=== PATIENT | female | born 1935 | race Caucasian/White ===

== ENCOUNTER → 2018-06-06 | Outpatient (REF) | payer MEDICARE ==
[~2018-06-06] MED LIST: AMIODARONE200 MG PO; EC ASPIRIN325 MG PO; HYDROCHLOROT25 MG PO; LISINOPRIL5 MG PO; MULTIVITAMI1 PO; REMERON15 MG PO; SYNTHROID112 MCG PO; TENORMIN25 MG PO; ZOCOR20 M1 PO
[2018-06-06 10:22] LABS: HEMATOCRIT 36.4 % (37.0-47.0); HEMOGLOBIN 11.2 g/dl (12.0-16.0); MEAN CORPUSCULAR HGB 29.6 pG CALC (26.0-32.0); MEAN CORPUSCULAR HGB CONC 30.8 g/L CALC (32.0-36.0); RED BLOOD COUNT 3.79 mill/uL (4.20-5.60)
[2018-06-06 12:07] LABS: ALBUMIN 4.1 g/dL (3.2-5.0); ALKALINE PHOSPHATASE 84 u/l (38-126); ANION GAP 16 (6-22 (CALC)); BILIRUBIN, TOTAL 0.5 mg/dL (0.0-1.4); BUN 23 mg/dL (8-23); BUN/CREATININE RATIO 28 (12-20 (CALC)); CARBON DIOXIDE 31 mmol/l (22-30); CHLORIDE 98 mmol/l (95-108); CREATININE 0.8 mg/dL (0.5-1.0); GFR > 60 ML/MIN (>=60 (CALC)); GFR FOR AFR.AMER. > 60 ML/MIN (>=60 (CALC)); SGOT/AST 22 u/l (9-36); SODIUM 140 mmol/l (137-146); TOTAL PROTEIN 7.5 g/dL (6.3-8.2)
[2018-06-06 12:27] LABS: TSH, 3RD GENERATION 2.05 uIU/mL (0.47 - 4.68)
== END | disposition home or self-care (01) ==
LOC: LAB 09:29
PROVIDERS: ATTEND Nurse Practitioner Adult Health
DX: E03.9 Hypothyroidism, unspecified (principal); E78.49 Other hyperlipidemia; I10 Essential (primary) hypertension

== ENCOUNTER 2021-05-28 08:04 | Observation (INO) | payer MEDICARE ==
[2021-05-28] VITALS (10 sets, daily range): BP systolic 97–168; BP diastolic 51–107
[~2021-05-28] VITALS: Ht 160 cm; Wt 125.8 kg
[2021-05-28 08:39] LABS: HEMATOCRIT 45.5 % (37.0-47.0); HEMOGLOBIN 13.5 g/dl (12.0-16.0); IMMATURE GRANULOCYTES 0.1 % (0.0-5.0); MEAN CELL VOLUME 106.1 fL CALC (80.0-100.0); MEAN CORPUSCULAR HGB 31.5 pG CALC (26.0-32.0); MEAN CORPUSCULAR HGB CONC 29.7 g/dL CAL (32.0-36.0); NEUT# 4.37 thou/uL (2.00-7.15); RED BLOOD COUNT 4.29 mill/uL (4.20-5.60); RED CELL DISTRI WIDTH 14.5 % (11.5-15.5)
[2021-05-28 08:54] LABS: INTERNATIONAL NORMALIZED RATIO 1.1 RATIO (0.7-1.3); PROTHROMBIN TIME 11.1 SECONDS (9.0-12.5)
[2021-05-28 08:56] LABS: ALBUMIN 4.1 g/dL (3.2-5.0); ALKALINE PHOSPHATASE 82 u/l (38-126); ANION GAP 10 (6-22 (CALC)); BILIRUBIN, TOTAL 0.6 mg/dL (0.0-1.4); BUN 21 mg/dL (8-23); BUN/CREATININE RATIO 28 (12-20 (CALC)); CARBON DIOXIDE 37 mmol/l (22-30); CHLORIDE 97 mmol/l (95-108); CREATININE 0.7 mg/dL (0.5-1.0); GFR > 60 ML/MIN (>=60 (CALC)); GFR FOR AFR.AMER. > 60 ML/MIN (>=60 (CALC)); POTASSIUM 4.6 mmol/l (3.5-5.1); SGOT/AST 23 u/l (9-36); SODIUM 140 mmol/l (137-146); TOTAL PROTEIN 8.2 g/dL (6.3-8.2)
[2021-05-29] VITALS (7 sets, daily range): BP systolic 85–118; BP diastolic 36–49
[2021-05-29 05:28] LABS: BUN 18 mg/dL (8-23); BUN/CREATININE RATIO 22 (12-20 (CALC)); CHLORIDE 93 mmol/l (95-108); CREATININE 0.8 mg/dL (0.5-1.0); GFR > 60 ML/MIN (>=60 (CALC)); GFR FOR AFR.AMER. > 60 ML/MIN (>=60 (CALC)); MAGNESIUM 1.7 mg/dL (1.6-2.3); SODIUM 140 mmol/l (137-146)
[2021-05-29 05:34] LABS: HEMATOCRIT 42.6 % (37.0-47.0); HEMOGLOBIN 12.4 g/dl (12.0-16.0); MEAN CELL VOLUME 108.1 fL CALC (80.0-100.0); MEAN CORPUSCULAR HGB 31.5 pG CALC (26.0-32.0); MEAN CORPUSCULAR HGB CONC 29.1 g/dL CAL (32.0-36.0); RED BLOOD COUNT 3.94 mill/uL (4.20-5.60); RED CELL DISTRI WIDTH 14.3 % (11.5-15.5)
[2021-05-29 06:36] LABS: POTASSIUM 4.5 mmol/l (3.5-5.1)
[2021-05-29 06:42] LABS: ANION GAP 12 (6-22 (CALC)); CARBON DIOXIDE 40 mmol/l (22-30)
[2021-05-30 00:10] VITALS: BP 105/40
[2021-05-30 04:07] VITALS: BP 101/35
[2021-05-30 05:16] LABS: HEMATOCRIT 41.3 % (37.0-47.0); HEMOGLOBIN 12.1 g/dl (12.0-16.0); MEAN CELL VOLUME 109.8 fL CALC (80.0-100.0); MEAN CORPUSCULAR HGB 32.2 pG CALC (26.0-32.0); MEAN CORPUSCULAR HGB CONC 29.3 g/dL CAL (32.0-36.0); RED BLOOD COUNT 3.76 mill/uL (4.20-5.60); RED CELL DISTRI WIDTH 13.8 % (11.5-15.5)
[2021-05-30 05:36] LABS: BUN 27 mg/dL (8-23); CHLORIDE 92 mmol/l (95-108); MAGNESIUM 1.8 mg/dL (1.6-2.3); POTASSIUM 4.8 mmol/l (3.5-5.1); SODIUM 139 mmol/l (137-146)
[2021-05-30 05:43] LABS: ANION GAP 11 (6-22 (CALC)); BUN/CREATININE RATIO 34 (12-20 (CALC)); CREATININE 0.8 mg/dL (0.5-1.0); GFR > 60 ML/MIN (>=60 (CALC)); GFR FOR AFR.AMER. > 60 ML/MIN (>=60 (CALC))
[2021-05-30 05:56] LABS: CARBON DIOXIDE 41 mmol/l (22-30)
[2021-05-30 08:04] VITALS: BP 105/43
[2021-05-30 10:10] VITALS: BP 111/50
[2021-05-30 14:12] VITALS: BP 93/45
[2021-05-30 21:06] VITALS: BP 117/57
[2021-05-31 00:35] VITALS: BP 121/46
[2021-05-31 04:29] VITALS: BP 142/73
[2021-05-31 05:29] LABS: HEMATOCRIT 41.8 % (37.0-47.0); HEMOGLOBIN 12.2 g/dl (12.0-16.0); MEAN CORPUSCULAR HGB 31.5 pG CALC (26.0-32.0); MEAN CORPUSCULAR HGB CONC 29.2 g/dL CAL (32.0-36.0); RED BLOOD COUNT 3.87 mill/uL (4.20-5.60); RED CELL DISTRI WIDTH 13.9 % (11.5-15.5)
[2021-05-31 05:58] LABS: BUN 33 mg/dL (8-23); BUN/CREATININE RATIO 41 (12-20 (CALC)); CHLORIDE 93 mmol/l (95-108); CREATININE 0.8 mg/dL (0.5-1.0); GFR > 60 ML/MIN (>=60 (CALC)); GFR FOR AFR.AMER. > 60 ML/MIN (>=60 (CALC)); MAGNESIUM 1.8 mg/dL (1.6-2.3); POTASSIUM 4.9 mmol/l (3.5-5.1); SODIUM 138 mmol/l (137-146)
[2021-05-31 06:05] LABS: ANION GAP 9 (6-22 (CALC))
[2021-05-31 06:10] LABS: CARBON DIOXIDE 41 mmol/l (22-30)
[2021-05-31 08:46] VITALS: BP 129/60
[2021-05-31 10:44] VITALS: BP 153/71
[2021-05-31 15:57] VITALS: BP 120/46
[2021-05-31 19:00] VITALS: BP 95/42
[2021-06-01] VITALS: BP 115/46
[2021-06-01 04:00] VITALS: BP 120/50
[2021-06-01 06:56] LABS: HEMATOCRIT 44.8 % (37.0-47.0); HEMOGLOBIN 13.3 g/dl (12.0-16.0); MEAN CELL VOLUME 106.9 fL CALC (80.0-100.0); MEAN CORPUSCULAR HGB 31.7 pG CALC (26.0-32.0); MEAN CORPUSCULAR HGB CONC 29.7 g/dL CAL (32.0-36.0); RED BLOOD COUNT 4.19 mill/uL (4.20-5.60); RED CELL DISTRI WIDTH 13.8 % (11.5-15.5)
[2021-06-01 07:11] LABS: BUN 24 mg/dL (8-23); BUN/CREATININE RATIO 26 (12-20 (CALC)); CHLORIDE 95 mmol/l (95-108); CREATININE 0.9 mg/dL (0.5-1.0); GFR 59 ML/MIN (>=60 (CALC)); GFR FOR AFR.AMER. > 60 ML/MIN (>=60 (CALC)); MAGNESIUM 1.9 mg/dL (1.6-2.3); POTASSIUM 4.5 mmol/l (3.5-5.1); SODIUM 138 mmol/l (137-146)
[2021-06-01 07:17] LABS: ANION GAP 11 (6-22 (CALC)); CARBON DIOXIDE 37 mmol/l (22-30)
[2021-06-01 07:30] VITALS: BP 130/57
[2021-06-01 10:22] VITALS: BP 142/70
[2021-06-01 14:53] VITALS: BP 119/71
[2021-06-01 19:00] VITALS: BP 116/40
[2021-06-02] VITALS: BP 132/63
[2021-06-02 04:00] VITALS: BP 110/63
[2021-06-02 06:20] LABS: HEMATOCRIT 42.4 % (37.0-47.0); HEMOGLOBIN 12.6 g/dl (12.0-16.0); MEAN CELL VOLUME 107.6 fL CALC (80.0-100.0); MEAN CORPUSCULAR HGB CONC 29.7 g/dL CAL (32.0-36.0); RED BLOOD COUNT 3.94 mill/uL (4.20-5.60)
[2021-06-02 06:41] LABS: CREATININE 1.1 mg/dL (0.5-1.0); POTASSIUM 4.7 mmol/l (3.5-5.1)
[2021-06-02 07:40] VITALS: BP 121/57
[2021-06-02 11:14] VITALS: BP 107/51
== END 2021-06-02 12:40 ==
LOC: ED 08:04 → ED-I 09:00 → ED 10:05 → MS2 10:06
PROVIDERS: Family Medicine; Nurse Practitioner; ADMIT Hospitalist; ATTEND Hospitalist
DX: J96.01 Acute respiratory failure with hypoxia (principal); J96.02 Acute respiratory failure with hypercapnia; I11.0 Hypertensive heart disease with heart failure; I50.33 Acute on chronic diastolic (congestive) heart failure; E66.2 Morbid (severe) obesity with alveolar hypoventilation; E87.6 Hypokalemia; E03.9 Hypothyroidism, unspecified; Z68.42 Body mass index [BMI] 45.0-49.9, adult; Z95.2 Presence of prosthetic heart valve; Z20.822 Contact with and (suspected) exposure to COVID-19
CPT/HCPCS: G0378; J1650; Q9967

== ENCOUNTER 2021-07-02 11:05 | Observation (INO) | payer MEDICARE ==
[2021-07-02] VITALS (33 sets, daily range): BP systolic 74–157; BP diastolic 31–102
[~2021-07-02] VITALS: Ht 160 cm; Wt 120.0 kg
[~2021-07-02 11:05] MED LIST changes: +LEVOTHYROXIN100 MCG PO; -SYNTHROID112 MCG PO
[2021-07-02 12:22] LABS: HEMATOCRIT 41.3 % (37.0-47.0); IMMATURE GRANULOCYTES 0.8 % (0.0-5.0); MEAN CORPUSCULAR HGB 31.1 pG CALC (26.0-32.0); MEAN CORPUSCULAR HGB CONC 29.1 g/dL CAL (32.0-36.0); NEUT# 10.1 thou/uL (2.00-7.15); RED BLOOD COUNT 3.86 mill/uL (4.20-5.60); RED CELL DISTRI WIDTH 13.4 % (11.5-15.5)
[2021-07-02 12:32] LABS: ALBUMIN 3.6 g/dL (3.2-5.0); ALKALINE PHOSPHATASE 75 u/l (38-126); BILIRUBIN, TOTAL 0.5 mg/dL (0.0-1.4); BUN 20 mg/dL (8-23); BUN/CREATININE RATIO 19 (12-20 (CALC)); CHLORIDE 90 mmol/l (95-108); CREATININE 1.1 mg/dL (0.5-1.0); GFR 47 ML/MIN (>=60 (CALC)); GFR FOR AFR.AMER. 57 ML/MIN (>=60 (CALC)); SODIUM 137 mmol/l (137-146); TOTAL PROTEIN 7.2 g/dL (6.3-8.2)
[2021-07-02 12:42] LABS: ANION GAP 9 (6-22 (CALC)); CARBON DIOXIDE 44 mmol/l (22-30); POTASSIUM 6.1 mmol/l (3.5-5.1); SGOT/AST 42 u/l (9-36)
[2021-07-02 13:20] LABS: URINE BILIRUBIN - DIPSTICK NEGATIVE (NEGATIVE); URINE BLOOD DIPSTICK TRACE-INTACT (NEGATIVE); URINE COLOR YELLOW; URINE GLUCOSE - DIPSTICK NEGATIVE (NEGATIVE); URINE KETONE NEGATIVE (NEGATIVE); URINE LEUK ESTERASE TRACE (NEGATIVE); URINE PROTEIN - DIPSTICK TRACE mg/dL (NEG-TRACE); URINE UROBILINOGEN - DIPSTICK 0.2 E.U./dL (0.2)
[2021-07-02 13:24] LABS: URINE NITRITE - DIPSTICK NEGATIVE (Negative)
[2021-07-02 23:33] LABS: BUN 21 mg/dL (8-23); BUN/CREATININE RATIO 24 (12-20 (CALC)); CHLORIDE 91 mmol/l (95-108); CREATININE 0.9 mg/dL (0.5-1.0); GFR 59 ML/MIN (>=60 (CALC)); GFR FOR AFR.AMER. > 60 ML/MIN (>=60 (CALC)); SODIUM 135 mmol/l (137-146)
[2021-07-03] VITALS (27 sets, daily range): BP systolic 76–114; BP diastolic 33–92
[2021-07-03 05:36] LABS: MEAN CORPUSCULAR HGB 31.4 pG CALC (26.0-32.0); MEAN CORPUSCULAR HGB CONC 29.9 g/dL CAL (32.0-36.0); RED BLOOD COUNT 2.8 mill/uL (4.20-5.60); RED CELL DISTRI WIDTH 13.6 % (11.5-15.5)
[2021-07-03 06:00] LABS: BUN 21 mg/dL (8-23); BUN/CREATININE RATIO 24 (12-20 (CALC)); CHLORIDE 91 mmol/l (95-108); CREATININE 0.9 mg/dL (0.5-1.0); GFR 59 ML/MIN (>=60 (CALC)); GFR FOR AFR.AMER. > 60 ML/MIN (>=60 (CALC)); SODIUM 135 mmol/l (137-146)
[2021-07-03 06:08] LABS: ANION GAP 6 (6-22 (CALC))
[2021-07-03 06:09] LABS: CARBON DIOXIDE 44 mmol/l (22-30)
[2021-07-03 06:10] LABS: ANION GAP 9 (6-22 (CALC)); CARBON DIOXIDE 41 mmol/l (22-30)
[2021-07-03 06:44] LABS: HEMATOCRIT 29.4 % (37.0-47.0); HEMOGLOBIN 8.8 g/dl (12.0-16.0)
[2021-07-03] MEDS ORDERED: IPRATROPIUM BROMIDE IN (09:54)
[2021-07-03] MEDS ORDERED: CVS MELATONIN10 MG PO (09:55)
[2021-07-03] MEDS ORDERED: PROBIOTI2 PO (09:55)
[2021-07-03] MEDS ORDERED: SM PAIN RELIEV PO (09:56)
[2021-07-03] MEDS ORDERED: LASIX 20 MG TAB20 MG PO (09:56)
[2021-07-03 18:55] LABS: BUN 22 mg/dL (8-23); CHLORIDE 91 mmol/l (95-108); CREATININE 0.9 mg/dL (0.5-1.0); GFR 59 ML/MIN (>=60 (CALC)); GFR FOR AFR.AMER. > 60 ML/MIN (>=60 (CALC)); SODIUM 134 mmol/l (137-146)
[2021-07-03 19:04] LABS: ALBUMIN 2.6 g/dL (3.2-5.0)
[2021-07-03 19:05] LABS: CARBON DIOXIDE 41 mmol/l (22-30); POTASSIUM 6.1 mmol/l (3.5-5.1)
[2021-07-03 20:09] LABS: ALBUMIN 2.6 g/dL (3.2-5.0); BUN 24 mg/dL (8-23); CHLORIDE 91 mmol/l (95-108); GFR 53 ML/MIN (>=60 (CALC)); GFR FOR AFR.AMER. > 60 ML/MIN (>=60 (CALC)); SODIUM 136 mmol/l (137-146)
[2021-07-03 20:21] LABS: CARBON DIOXIDE 43 mmol/l (22-30)
[2021-07-04] VITALS (17 sets, daily range): BP systolic 67–154; BP diastolic 36–98
[2021-07-04 05:45] LABS: HEMOGLOBIN 8.3 g/dl (12.0-16.0); MEAN CELL VOLUME 106.1 fL CALC (80.0-100.0); MEAN CORPUSCULAR HGB 31.4 pG CALC (26.0-32.0); MEAN CORPUSCULAR HGB CONC 29.6 g/dL CAL (32.0-36.0); RED BLOOD COUNT 2.64 mill/uL (4.20-5.60); RED CELL DISTRI WIDTH 13.9 % (11.5-15.5)
[2021-07-04 06:03] LABS: ALBUMIN 2.7 g/dL (3.2-5.0); BUN 23 mg/dL (8-23); CHLORIDE 90 mmol/l (95-108); GFR 53 ML/MIN (>=60 (CALC)); GFR FOR AFR.AMER. > 60 ML/MIN (>=60 (CALC)); POTASSIUM 4.5 mmol/l (3.5-5.1); SODIUM 136 mmol/l (137-146)
[2021-07-04 06:19] LABS: CARBON DIOXIDE 43 mmol/l (22-30)
[2021-07-05] VITALS (7 sets, daily range): BP systolic 91–126; BP diastolic 41–59
[2021-07-05 05:34] LABS: HEMATOCRIT 27.7 % (37.0-47.0); HEMOGLOBIN 8.1 g/dl (12.0-16.0); MEAN CELL VOLUME 107.4 fL CALC (80.0-100.0); MEAN CORPUSCULAR HGB 31.4 pG CALC (26.0-32.0); MEAN CORPUSCULAR HGB CONC 29.2 g/dL CAL (32.0-36.0); RED BLOOD COUNT 2.58 mill/uL (4.20-5.60); RED CELL DISTRI WIDTH 14.2 % (11.5-15.5)
[2021-07-05 06:01] LABS: ALBUMIN 2.7 g/dL (3.2-5.0); BUN 20 mg/dL (8-23); CHLORIDE 92 mmol/l (95-108); CREATININE 0.8 mg/dL (0.5-1.0); GFR > 60 ML/MIN (>=60 (CALC)); GFR FOR AFR.AMER. > 60 ML/MIN (>=60 (CALC)); POTASSIUM 4.5 mmol/l (3.5-5.1); SODIUM 135 mmol/l (137-146)
[2021-07-05 06:15] LABS: CARBON DIOXIDE 43 mmol/l (22-30)
[2021-07-06 04:37] VITALS: BP 91/47
[2021-07-06 07:16] VITALS: BP 146/80
[2021-07-06 08:30] VITALS: BP 99/42
[2021-07-06 10:36] VITALS: BP 99/42
== END 2021-07-06 14:49 ==
LOC: ED 11:05 → ED-I 13:40 → ED 15:10 → ICU 15:11 → MS2 15:11
PROVIDERS: Family Medicine; Internal Medicine Nephrology; ADMIT Internal Medicine; ATTEND Internal Medicine
PROC: 2W3RX1Z Immobilization of Left Lower Leg using Splint (ICD-10-PCS; principal; 2021-07-02)
PROC: 05HD33Z Insertion of Infusion Device into Right Cephalic Vein, Percutaneous Approach (ICD-10-PCS; 2021-07-02)
DX: S82.832A Other fracture of upper and lower end of left fibula, initial encounter for closed fracture (principal); E87.5 Hyperkalemia; I11.0 Hypertensive heart disease with heart failure; I50.32 Chronic diastolic (congestive) heart failure; E11.9 Type 2 diabetes mellitus without complications; J96.12 Chronic respiratory failure with hypercapnia; J96.11 Chronic respiratory failure with hypoxia; E87.1 Hypo-osmolality and hyponatremia; I48.91 Unspecified atrial fibrillation; I95.9 Hypotension, unspecified; D64.9 Anemia, unspecified; E03.9 Hypothyroidism, unspecified; E87.4 Mixed disorder of acid-base balance; E66.2 Morbid (severe) obesity with alveolar hypoventilation; I34.0 Nonrheumatic mitral (valve) insufficiency; W18.2XXA Fall in (into) shower or empty bathtub, initial encounter; Y93.E1 Activity, personal bathing and showering; Y92.002 Bathroom of unspecified non-institutional (private) residence as the place of occurrence of the external cause; Z68.42 Body mass index [BMI] 45.0-49.9, adult; Z95.2 Presence of prosthetic heart valve; Z99.81 Dependence on supplemental oxygen; Z20.822 Contact with and (suspected) exposure to COVID-19
CPT/HCPCS: J1650

== ENCOUNTER 2021-07-21 23:26 | Emergency (ER) | payer MEDICARE ==
[~2021-07-21] VITALS: Ht 160 cm; Wt 150.0 kg
[~2021-07-21 23:26] MED LIST changes: +CVS MELATONIN10 MG PO; +IPRATROPIUM BROMIDE IN; +LASIX 20 MG TAB20 MG PO; +PROBIOTI2 PO; +SM PAIN RELIEV PO
[2021-07-21 23:35] VITALS: BP 143/63
[2021-07-21 23:45] VITALS: BP 126/67
[2021-07-22 00:03] LABS: HEMATOCRIT 30.7 % (37.0-47.0); HEMOGLOBIN 8.6 g/dl (12.0-16.0); IMMATURE GRANULOCYTES 0.8 % (0.0-5.0); MEAN CORPUSCULAR HGB 32.3 pG CALC (26.0-32.0); NEUT# 3.7 thou/uL (2.00-7.15); RED BLOOD COUNT 2.66 mill/uL (4.20-5.60); RED CELL DISTRI WIDTH 17.6 % (11.5-15.5)
[2021-07-22 00:05] LABS: MEAN CELL VOLUME 115.4 fL CALC (80.0-100.0)
[2021-07-22 00:19] LABS: ALKALINE PHOSPHATASE 71 u/l (38-126); BILIRUBIN, TOTAL 0.7 mg/dL (0.0-1.4); BUN 25 mg/dL (8-23); BUN/CREATININE RATIO 34 (12-20 (CALC)); CHLORIDE 92 mmol/l (95-108); CREATININE 0.7 mg/dL (0.5-1.0); GFR > 60 ML/MIN (>=60 (CALC)); GFR FOR AFR.AMER. > 60 ML/MIN (>=60 (CALC)); LIPASE 100 u/l (23-300); POTASSIUM 5.1 mmol/l (3.5-5.1); SGOT/AST 28 u/l (9-36); SODIUM 138 mmol/l (137-146); TOTAL PROTEIN 6.4 g/dL (6.3-8.2)
[2021-07-22 00:25] LABS: ANION GAP 4 (6-22 (CALC))
[2021-07-22 00:26] LABS: ACT PARTIAL THROMBO TIME 25.6 SECONDS (20.0-32.5); INTERNATIONAL NORMALIZED RATIO 1.1 RATIO (0.7-1.3); PROTHROMBIN TIME 11.2 SECONDS (9.0-12.5)
[2021-07-22 00:29] LABS: CARBON DIOXIDE 47 mmol/l (22-30)
[2021-07-22 02:47] VITALS: BP 126/67
[2021-07-23] MEDS ORDERED: ASPIRIN325 MG PO (10:04)
[2021-07-23] MEDS ORDERED: LINEZOLID600 MG PO (10:07)
[2021-07-23] MEDS ORDERED: ENOXAPARIN40 MG/0.1 SC (10:07)
== END 2021-07-22 03:15 | disposition home or self-care (01) ==
LOC: ED 23:26
DX: J96.12 Chronic respiratory failure with hypercapnia (principal); J96.11 Chronic respiratory failure with hypoxia; E66.2 Morbid (severe) obesity with alveolar hypoventilation; I11.0 Hypertensive heart disease with heart failure; I50.9 Heart failure, unspecified; E11.9 Type 2 diabetes mellitus without complications; Z95.2 Presence of prosthetic heart valve; Z99.81 Dependence on supplemental oxygen

== ENCOUNTER 2021-07-23 09:23 | Inpatient (IN) | payer MEDICARE ==
[2021-07-23] VITALS (144 sets, daily range): BP systolic 57–171; BP diastolic 20–118
[~2021-07-23] VITALS: Ht 160 cm; Wt 121.0 kg
[2021-07-23] MEDS ORDERED: ASPIRIN325 MG PO (10:04)
[2021-07-23] MEDS ORDERED: ENOXAPARIN40 MG/0.1 SC (10:07)
[2021-07-23] MEDS ORDERED: LINEZOLID600 MG PO (10:07)
[2021-07-23 10:45] LABS: HEMATOCRIT 34.3 % (37.0-47.0); HEMOGLOBIN 9.3 g/dl (12.0-16.0); IMMATURE GRANULOCYTES 1.6 % (0.0-5.0); MEAN CELL VOLUME 117.5 fL CALC (80.0-100.0); MEAN CORPUSCULAR HGB 31.8 pG CALC (26.0-32.0); MEAN CORPUSCULAR HGB CONC 27.1 g/dL CAL (32.0-36.0); NEUT# 4.34 thou/uL (2.00-7.15); RED BLOOD COUNT 2.92 mill/uL (4.20-5.60); RED CELL DISTRI WIDTH 17.5 % (11.5-15.5)
[2021-07-23 10:47] LABS: URINE BLOOD DIPSTICK NEGATIVE (NEGATIVE); URINE COLOR YELLOW; URINE GLUCOSE - DIPSTICK NEGATIVE (NEGATIVE); URINE KETONE NEGATIVE (NEGATIVE); URINE LEUK ESTERASE NEGATIVE (NEGATIVE); URINE PH 5.5 (4.5-8.0); URINE PROTEIN - DIPSTICK 30 mg/dL (NEG-TRACE); URINE SPECIFIC GRAVITY >=1.030; URINE UROBILINOGEN - DIPSTICK 0.2 E.U./dL (0.2)
[2021-07-23 10:53] LABS: INTERNATIONAL NORMALIZED RATIO 1.1 RATIO (0.7-1.3)
[2021-07-23 10:55] LABS: URINE BILIRUBIN - DIPSTICK NEGATIVE (NEGATIVE); URINE NITRITE - DIPSTICK NEGATIVE (Negative)
[2021-07-23 10:56] LABS: ALBUMIN 3.2 g/dL (3.2-5.0); ALKALINE PHOSPHATASE 76 u/l (38-126); BILIRUBIN, TOTAL 0.7 mg/dL (0.0-1.4); BUN 30 mg/dL (8-23); BUN/CREATININE RATIO 37 (12-20 (CALC)); CHLORIDE 94 mmol/l (95-108); CREATININE 0.8 mg/dL (0.5-1.0); GFR > 60 ML/MIN (>=60 (CALC)); GFR FOR AFR.AMER. > 60 ML/MIN (>=60 (CALC)); SGOT/AST 29 u/l (9-36); SODIUM 138 mmol/l (137-146); TOTAL PROTEIN 6.8 g/dL (6.3-8.2)
[2021-07-23 10:56] LABS: URINE BACTERIA MANY hpf
[2021-07-23 10:57] LABS: URINE SQUAMOUS EPITHELIAL CELL FEW EPI/hpf (0-FEW)
[2021-07-23 10:58] LABS: URINE HYALINE CAST FEW lpf (NONE-RARE)
[2021-07-23 11:06] LABS: ANION GAP 5 (6-22 (CALC)); CARBON DIOXIDE 44 mmol/l (22-30); POTASSIUM 5.4 mmol/l (3.5-5.1)
[2021-07-24] VITALS (69 sets, daily range): BP systolic 88–131; BP diastolic 32–94
[2021-07-24 04:45] LABS: HEMATOCRIT 32.6 % (37.0-47.0); HEMOGLOBIN 9.2 g/dl (12.0-16.0); MEAN CELL VOLUME 112.8 fL CALC (80.0-100.0); MEAN CORPUSCULAR HGB 31.8 pG CALC (26.0-32.0); MEAN CORPUSCULAR HGB CONC 28.2 g/dL CAL (32.0-36.0); RED BLOOD COUNT 2.89 mill/uL (4.20-5.60); RED CELL DISTRI WIDTH 17.2 % (11.5-15.5)
[2021-07-24 05:12] LABS: CREATININE 1.1 mg/dL (0.5-1.0); MAGNESIUM 1.7 mg/dL (1.6-2.3)
[2021-07-24 05:15] LABS: POTASSIUM 4.1 mmol/l (3.5-5.1)
[2021-07-25] VITALS (85 sets, daily range): BP systolic 81–124; BP diastolic 35–62
[2021-07-25 03:38] LABS: HEMATOCRIT 29.3 % (37.0-47.0); HEMOGLOBIN 8.7 g/dl (12.0-16.0); MEAN CELL VOLUME 107.7 fL CALC (80.0-100.0); MEAN CORPUSCULAR HGB CONC 29.7 g/dL CAL (32.0-36.0); RED BLOOD COUNT 2.72 mill/uL (4.20-5.60); RED CELL DISTRI WIDTH 17.9 % (11.5-15.5)
[2021-07-25 03:53] LABS: CREATININE 1.2 mg/dL (0.5-1.0); MAGNESIUM 1.4 mg/dL (1.6-2.3)
[2021-07-25 03:58] LABS: POTASSIUM 2.9 mmol/l (3.5-5.1)
[2021-07-26] VITALS (75 sets, daily range): BP systolic 85–140; BP diastolic 25–82
[2021-07-26 05:24] LABS: HEMATOCRIT 30.8 % (37.0-47.0); HEMOGLOBIN 9.5 g/dl (12.0-16.0); MEAN CELL VOLUME 104.8 fL CALC (80.0-100.0); MEAN CORPUSCULAR HGB 32.3 pG CALC (26.0-32.0); MEAN CORPUSCULAR HGB CONC 30.8 g/dL CAL (32.0-36.0); RED BLOOD COUNT 2.94 mill/uL (4.20-5.60)
[2021-07-26 05:47] LABS: CREATININE 1.1 mg/dL (0.5-1.0)
[2021-07-26 05:54] LABS: MAGNESIUM 2.2 mg/dL (1.6-2.3)
[2021-07-27] VITALS (63 sets, daily range): BP systolic 80–139; BP diastolic 41–76
[2021-07-27 05:39] LABS: HEMATOCRIT 31.4 % (37.0-47.0); HEMOGLOBIN 9.6 g/dl (12.0-16.0); MEAN CORPUSCULAR HGB 32.1 pG CALC (26.0-32.0); MEAN CORPUSCULAR HGB CONC 30.6 g/dL CAL (32.0-36.0); RED BLOOD COUNT 2.99 mill/uL (4.20-5.60); RED CELL DISTRI WIDTH 17.8 % (11.5-15.5)
[2021-07-27 05:55] LABS: ANION GAP 8 (6-22 (CALC)); BUN 21 mg/dL (8-23); BUN/CREATININE RATIO 25 (12-20 (CALC)); CARBON DIOXIDE 38 mmol/l (22-30); CHLORIDE 97 mmol/l (95-108); CREATININE 0.9 mg/dL (0.5-1.0); GFR 59 ML/MIN (>=60 (CALC)); GFR FOR AFR.AMER. > 60 ML/MIN (>=60 (CALC)); MAGNESIUM 1.8 mg/dL (1.6-2.3); POTASSIUM 3.2 mmol/l (3.5-5.1); SODIUM 139 mmol/l (137-146)
[2021-07-28] VITALS (55 sets, daily range): BP systolic 90–198; BP diastolic 35–158
[2021-07-28 05:24] LABS: HEMATOCRIT 31.9 % (37.0-47.0); HEMOGLOBIN 9.2 g/dl (12.0-16.0); MEAN CELL VOLUME 111.1 fL CALC (80.0-100.0); MEAN CORPUSCULAR HGB 32.1 pG CALC (26.0-32.0); MEAN CORPUSCULAR HGB CONC 28.8 g/dL CAL (32.0-36.0); RED BLOOD COUNT 2.87 mill/uL (4.20-5.60)
[2021-07-28 05:36] LABS: ALBUMIN 2.8 g/dL (3.2-5.0); ALKALINE PHOSPHATASE 76 u/l (38-126); BILIRUBIN, TOTAL 0.8 mg/dL (0.0-1.4); BUN 18 mg/dL (8-23); BUN/CREATININE RATIO 30 (12-20 (CALC)); CARBON DIOXIDE 37 mmol/l (22-30); CHLORIDE 99 mmol/l (95-108); CREATININE 0.6 mg/dL (0.5-1.0); GFR > 60 ML/MIN (>=60 (CALC)); GFR FOR AFR.AMER. > 60 ML/MIN (>=60 (CALC)); MAGNESIUM 1.8 mg/dL (1.6-2.3); SODIUM 137 mmol/l (137-146); TOTAL PROTEIN 6.1 g/dL (6.3-8.2)
[2021-07-28 05:45] LABS: ANION GAP 5 (6-22 (CALC)); SGOT/AST 54 u/l (9-36)
[2021-07-29] VITALS (48 sets, daily range): BP systolic 80–128; BP diastolic 37–67
[2021-07-29 05:55] LABS: HEMATOCRIT 30.4 % (37.0-47.0); HEMOGLOBIN 8.7 g/dl (12.0-16.0); MEAN CELL VOLUME 111.8 fL CALC (80.0-100.0); MEAN CORPUSCULAR HGB CONC 28.6 g/dL CAL (32.0-36.0); RED BLOOD COUNT 2.72 mill/uL (4.20-5.60); RED CELL DISTRI WIDTH 17.5 % (11.5-15.5)
[2021-07-29 06:02] LABS: ANION GAP 3 (6-22 (CALC)); BUN 14 mg/dL (8-23); BUN/CREATININE RATIO 28 (12-20 (CALC)); CARBON DIOXIDE 37 mmol/l (22-30); CHLORIDE 101 mmol/l (95-108); CREATININE 0.5 mg/dL (0.5-1.0); GFR > 60 ML/MIN (>=60 (CALC)); GFR FOR AFR.AMER. > 60 ML/MIN (>=60 (CALC)); MAGNESIUM 1.8 mg/dL (1.6-2.3); POTASSIUM 4.3 mmol/l (3.5-5.1); SODIUM 137 mmol/l (137-146)
[2021-07-30] VITALS (39 sets, daily range): BP systolic 78–130; BP diastolic 33–83
[2021-07-31 03:15] VITALS: BP 127/60
[2021-07-31 04:59] LABS: HEMOGLOBIN 8.2 g/dl (12.0-16.0); MEAN CORPUSCULAR HGB 32.8 pG CALC (26.0-32.0); MEAN CORPUSCULAR HGB CONC 29.3 g/dL CAL (32.0-36.0); RED BLOOD COUNT 2.5 mill/uL (4.20-5.60); RED CELL DISTRI WIDTH 16.9 % (11.5-15.5)
[2021-07-31 05:11] LABS: BUN 21 mg/dL (8-23); BUN/CREATININE RATIO 29 (12-20 (CALC)); CHLORIDE 100 mmol/l (95-108); CREATININE 0.7 mg/dL (0.5-1.0); GFR > 60 ML/MIN (>=60 (CALC)); GFR FOR AFR.AMER. > 60 ML/MIN (>=60 (CALC)); MAGNESIUM 2.1 mg/dL (1.6-2.3); POTASSIUM 4.6 mmol/l (3.5-5.1); SODIUM 138 mmol/l (137-146)
[2021-07-31 05:16] LABS: ANION GAP 4 (6-22 (CALC)); CARBON DIOXIDE 39 mmol/l (22-30)
[2021-07-31 09:25] VITALS: BP 116/54
[2021-07-31 13:12] VITALS: BP 104/50
[2021-07-31 16:22] VITALS: BP 108/50
[2021-07-31 20:16] VITALS: BP 121/53
[2021-08-01 00:01] VITALS: BP 84/37
[2021-08-01 04:00] VITALS: BP 80/39
[2021-08-01 04:21] VITALS: BP 93/40
[2021-08-01 08:00] VITALS: BP 101/46
[2021-08-01 14:19] VITALS: BP 105/46
[2021-08-01 18:41] VITALS: BP 107/42
[2021-08-02] VITALS (8 sets, daily range): BP systolic 112–135; BP diastolic 43–64
[2021-08-02] MEDS ORDERED: PERCOCET 5/325M1 TAB PO ×2 (11:40→17:49)
[2021-08-03 04:16] VITALS: BP 113/49
[2021-08-03 07:32] VITALS: BP 129/53
== END 2021-08-03 08:15 | DRG 208 ==
LOC: ED 09:23 → ED-I 13:00 → ED 14:55 → ICU 14:55 → MS2 08-01 03:15
PROVIDERS: Internal Medicine; ADMIT Hospitalist; ATTEND Hospitalist
PROC: 0BH17EZ Insertion of Endotracheal Airway into Trachea, Via Natural or Artificial Opening (ICD-10-PCS; principal; 2021-07-23)
PROC: 5A1945Z Respiratory Ventilation, 24-96 Consecutive Hours (ICD-10-PCS; 2021-07-23)
PROC: 02HV33Z Insertion of Infusion Device into Superior Vena Cava, Percutaneous Approach (ICD-10-PCS; 2021-07-23)
PROC: 0T9B70Z Drainage of Bladder with Drainage Device, Via Natural or Artificial Opening (ICD-10-PCS; 2021-07-23)
PROC: 5A09357 Assistance with Respiratory Ventilation, Less than 24 Consecutive Hours, Continuous Positive Airway Pressure (ICD-10-PCS; 2021-07-23)
PROC: 5A09357 Assistance with Respiratory Ventilation, Less than 24 Consecutive Hours, Continuous Positive Airway Pressure (ICD-10-PCS; 2021-07-27)
DX: J96.22 Acute and chronic respiratory failure with hypercapnia (principal); J18.9 Pneumonia, unspecified organism; I50.33 Acute on chronic diastolic (congestive) heart failure; R57.0 Cardiogenic shock; Z68.42 Body mass index [BMI] 45.0-49.9, adult; E87.2 Acidosis; E66.2 Morbid (severe) obesity with alveolar hypoventilation; E87.3 Alkalosis; N39.0 Urinary tract infection, site not specified; Z16.12 Extended spectrum beta lactamase (ESBL) resistance; I11.0 Hypertensive heart disease with heart failure; J96.21 Acute and chronic respiratory failure with hypoxia; E11.9 Type 2 diabetes mellitus without complications; I34.0 Nonrheumatic mitral (valve) insufficiency; E03.9 Hypothyroidism, unspecified; R91.8 Other nonspecific abnormal finding of lung field; I48.91 Unspecified atrial fibrillation; K59.00 Constipation, unspecified; R53.81 Other malaise; B96.1 Klebsiella pneumoniae [K. pneumoniae] as the cause of diseases classified elsewhere; S82.892D Other fracture of left lower leg, subsequent encounter for closed fracture with routine healing; X58.XXXD Exposure to other specified factors, subsequent encounter; Z66 Do not resuscitate; Z51.5 Encounter for palliative care; Z99.81 Dependence on supplemental oxygen; Z95.2 Presence of prosthetic heart valve; Z20.822 Contact with and (suspected) exposure to COVID-19; J96.12 Chronic respiratory failure with hypercapnia; J96.11 Chronic respiratory failure with hypoxia; I50.9 Heart failure, unspecified
CPT/HCPCS: J1650; J3370; J3475; S0164